=== PATIENT | female | born 1970 | race African-American/Black ===

== ENCOUNTER 2025-04-21 14:11 | Emergency (ER) | payer SELFPAY ==
[~2025-04-21] VITALS: Ht 165.1 cm; Wt 66.0 kg
[2025-04-21 14:18] VITALS: O2SAT 99
[2025-04-21] MEDS: ONDANSETRON 4MG ODT PO ONE (15:49)
[2025-04-21] MEDS: HYDROCODONE/ACETAMINOPHEN 5/325MG TABLET PO ONE (15:49)
[2025-04-21] MEDS ORDERED: IBUP-2029 MT (16:07)
[2025-04-21 16:38] VITALS: BP 173/91; PULSE 65; RESP 16; TEMP 36.9; O2SAT 100
== END 2025-04-21 16:50 | disposition home or self-care (01) ==
LOC: ER 14:11
DX: S06.0XAA Concussion with loss of consciousness status unknown, initial encounter (principal); M50.30 Other cervical disc degeneration, unspecified cervical region; X58.XXXA Exposure to other specified factors, initial encounter; Y93.89 Activity, other specified; Y92.89 Other specified places as the place of occurrence of the external cause; Y99.8 Other external cause status
CPT/HCPCS: 99284; 70450; 72125; Q0162